=== PATIENT | female | born 1995 | race Caucasian/White ===

== ENCOUNTER 2018-04-04 15:39 | Emergency (ER) | payer MEDICAID ==
[~2018-04-04] VITALS: Ht 160 cm; Wt 45.5 kg
[~2018-04-04 15:39] MED LIST: KLONOPIN0.5 MG PO; ZOLOFT50 MG PO
[2018-04-04 15:40] VITALS: Ht 160 cm; Wt 45.5 kg
[2018-04-04 16:30] LABS: APTT 29.4 SECONDS (22.8-39.4); INR 1.06 (0.85-1.17); PROTIME 13.4 SECONDS (11.6-15.0)
[2018-04-04 16:31] LABS: D-DIMER-QUANTITATIVE < 0.27 ug/mLFEU (0.20-0.54); HEMATOCRIT 32.3 % (36.0-48.0); HEMOGLOBIN 11.1 g/dL (12-16); LYMPHOCYTES 30.6 % (15-50); MCH 30.7 pg (26.0-34.0); MCHC 34.4 g/dL (31.0-37.0); MCV 89.5 fL (80.0-100.0); MEAN PLATELET VOLUME 8.8 fL (7.4-10.4); NEUTROPHILS 62.5 % (40-80); PLATELET COUNT 249 10x3/uL (130-400); RBC 3.61 10x6/uL (4.00-5.40); RDW 12.9 % (11.5-14.5); WBC 5.2 10x3/uL (4.8-10.8)
[2018-04-04 16:56] LABS: ALBUMIN 4.3 g/dL (3.4-5.0); ALKALINE PHOSPHATASE 49 U/L (46-116); ALT (SGPT) 29 U/L (10-68); BILIRUBIN - TOTAL 0.28 mg/dL (0.2-1.3); CALC OSMOLALITY 286 mosm/kg (275-300); CALCIUM 9.2 mg/dL (8.5-10.1); CARBON DIOXIDE 24.7 mmol/L (21.0-32.0); CHLORIDE - SERUM 108 mmol/L (98-107); CREATININE - SERUM 0.6 mg/dL (0.6-1.3); GLUCOSE 98 mg/dL (74-106); POTASSIUM - SERUM 3.9 mmol/L (3.5-5.1); PROTEIN - SERUM 7.2 g/dL (6.4-8.2); SODIUM 145 mmol/L (136-145); UREA NITROGEN 8 mg/dL (7-18); eGFR NON AFRICAN AMERICAN > 90 mL/min (90-120)
[2018-04-04 17:07] LABS: CKMB 0.3 U/L (0.0-3.6); CREATINE KINASE 80 UL (21-215)
[2018-04-04 17:16] LABS: TROPONIN-I < 0.010 ng/mL (0.000-0.060)
[2018-04-04] MEDS ORDERED: DOLOBID500 MG PO (20:31)
[2018-04-04 20:49] VITALS: BP 105/73
== END 2018-04-04 20:49 | disposition home or self-care (01) ==
LOC: D.ER 15:39
PROVIDERS: Family Medicine
DX: R07.9 Chest pain, unspecified (principal)